=== PATIENT | male | born 1960 | race Caucasian/White ===

== ENCOUNTER 2021-09-19 16:38 | Inpatient (IN) | payer OTHER, BC ==
[~2021-09-19] VITALS: Ht 175.3 cm; Wt 100.5 kg
[~2021-09-19 16:38] MED LIST changes: -ATOR10 PO; -CIPR750 PO; -Prinivil10 MG PO; -TRAZ100 PO; -VISBIOME 112.51 EACH PO
[2021-09-19] MEDS ORDERED: TRAZ100 PO (17:06)
[2021-09-19] MEDS ORDERED: ATOR10 PO (17:07)
[2021-09-19] MEDS ORDERED: Prinivil10 MG PO (17:07)
[2021-09-19 18:34] LABS: Body Fluid Crystals NEG (NEGATIVE)
[2021-09-19 18:43] LABS: BODY FLUID RBC 0.598 M/mm3 (0-0); RBC Count, Synovial Fluid 598000 /mm3 (0-0)
[2021-09-19 19:05] LABS: WBC Count, Synovial Fluid 48620 /mm3 (0-180)
[2021-09-19 19:09] LABS: Color, Synovial Fluid Red (None-P Yel)
[2021-09-19 19:10] LABS: Appearance, Synovial Fluid Turbid (Clear)
[2021-09-19 19:26] LABS: Glucose, Body Fluid 49 mg/dL; Protein, Body Fluid 4.3 g/dL
[2021-09-19 19:49] LABS: Monocytes/Macrophages, Synovia 12 % (0-65); Neutrophils, Synovial Fluid 88 % (0-24)
[2021-09-19 20:20] LABS: Calcium, Ionized (POC) 1.17 mmol/L (1.10-1.46); Chloride (POC) 101 mmol/L (98-108); Creatinine (POC) 0.8 mg/dL (0.8-1.3); Glucose (ISTAT POC) 91 mg/dL (70-99); Hemoglobin (POC) 14.6 g/dL (13.5-17.5); Potassium (POC) 4.1 mmol/L (3.5-5.5); Sodium (POC) 136 mmol/L (135-148); Total CO2 (POC) 25 mmol/L (21-32)
[2021-09-20 01:41] LABS: Influenza A, PCR NEGATIVE (NEGATIVE); Influenza B, PCR NEGATIVE (NEGATIVE); Resp Syncytial Virus, PCR NEGATIVE (NEGATIVE); SARS-Cov-2 (COVID-19) PCR, MMC NEGATIVE (NEGATIVE)
--- NOTE | 2021-09-20 05:49 | NUR ---
SHIFT SUMMARY PT NEW ED ADMIT THIS EVENING. LEFT KNEE SWOLLEN, RED, AND WARM. REDNESS MARKED WITH PEN. PT NPO SINCE MIDNIGHT FOR SURGERY ON KNEE. PT REPORTING PAIN TO LEFT KNEE. ELEVATED ON PILLOW AND ICE PACKS APPLIED. PT REPORTED FENTANYL NOT EFFECTIVE AFTER SECOND DOSE. THIRD DOSE GIVEN AND THEN NEW ORDER OBTAINED FOR DILAUDID. THIS RN WENT TO ADMINISTER DILAUDID AND PT WAS ASLEEP. WILL CONTINUE TO MONITOR. VITAL SIGNS STABLE. TELEMETRY SINUS SHARYN AT 57. PT HAS A HX OF BRADYCARDIA. ASYMPTOMATIC.
[2021-09-20 07:26] LABS: BASOPHILS ABSOLUTE AUTO 0.03 K/mm3 (0.00-0.23); BASOPHILS PERCENT AUTO 0 % (0-2); EOSINOPHILS PERCENT AUTO 1 % (0-6); Hematocrit 42.1 % (37.0-53.0); Hemoglobin 13.7 g/dL (13.5-17.5); IMMATURE GRAN ABSOLUTE AUTO 0.02 K/mm3 (0.00-0.10); IMMATURE GRAN PERCENT AUTO 0 % (0-1); LYMPHOCYTES ABSOLUTE AUTO 1.69 K/mm3 (0.84-5.20); LYMPHOCYTES PERCENT AUTO 20 % (21-46); MONOCYTES ABSOLUTE AUTO 0.91 K/mm3 (0.16-1.47); MONOCYTES PERCENT AUTO 11 % (4-13); Mean Corpuscular HGB Conc 32.5 g/dL (31.5-36.5); Mean Corpuscular Volume 89 fL (80-100); Mean Platelet Volume 9.6 fL (9.1-12.4); NEUTROPHILS ABSOLUTE AUTO 5.74 K/mm3 (1.96-9.15); NEUTROPHILS PERCENT AUTO 68 % (41-73); Platelet Count 211 K/mm3 (150-400); RDW Coefficient Variation 12.6 % (11.7-14.2); RDW Standard Deviation 41.2 fL (35.1-46.3); Red Blood Cell Count 4.72 M/mm3 (4.30-5.90); White Blood Cell Count 8.49 K/mm3 (4.00-11.30)
[2021-09-20 07:51] LABS: Alanine Aminotransfer (ALT/SGP 36 U/L (12-78); Albumin, Blood 2.9 g/dL (3.4-5.0); Albumin/Globulin Ratio 0.8 (0.8-1.8); Alk Phos 65 U/L (50-136); Anion Gap 5 mmol/L (6-16); Aspartate Aminotrans (AST/SGOT 17 U/L (12-37); Bilirubin, Total 0.6 mg/dL (0.1-1.0); Blood Urea Nitrogen 11 mg/dL (8-24); Bun/Creatinine Ratio 13.4 (12.0-20.0); CO2, Blood 29 mmol/L (21-32); Calcium, Blood 8.4 mg/dL (8.5-10.1); Chloride, Blood 105 mmol/L (98-108); Creatinine, Blood 0.82 mg/dL (0.60-1.20); Globulin, Blood 3.5 g/dL (2.2-4.0); Glomerular Filtration Rate >60 (60-); Glucose, Blood 110 mg/dL (70-99); Potassium, Blood 3.9 mmol/L (3.5-5.5); Sodium, Blood 139 mmol/L (136-145); Total Protein, Blood 6.4 g/dL (6.4-8.2)
--- NOTE | 2021-09-20 09:46 | NUR ---
History, Chart, Medications and Allergies reviewed before start of procedure. Lungs clear T/O to Auscultation. Patient confirms NPO status and agrees with scheduled surgery. Pre-Op teaching done. Pt verbalizes understanding.
--- NOTE | 2021-09-20 10:56 | NUR ---
09/20/21 1056 Amadeo Tracey PT ON SCHEDULED ABX
--- NOTE | 2021-09-20 11:56 | NUR ---
PT TO PACU FOR RECOVERY. SNORING, CHIN LIFT FOR IMPROVED AIRWAY CLEARANCE. PLACED ON 4L O2 VIA NC. LEFT LEG IMMOBILIZER WITH MADAY DRAIN PLACED WITH SMALL AMOUNT RED DRAINAGE. ICE THERAPY PLACED FOR COMFORT. PT DENIES PAIN/NAUSEA.
--- NOTE | 2021-09-20 12:14 | NUR ---
20CC RED DRAINAGE FROM MADAY DRAIN.
--- NOTE | 2021-09-20 13:27 | NUR ---
RN NOTE PT RETURNED TO MEDICAL UNIT FROM RECOVERY ROOM AT 1300HRS. PT AWAKE ON ARRIVAL. SATS IN THE HIGH 90S ON ROOM AIR. NO SOB. LEFT LEG HAS RAJENDRA WRAP BANDAGE UNDER KNEE IMMOBILISER, ELEVATED ON PILLOWS WITH ICE PACKS IN PLACE. LEFT FOOT WARM, GOOD SENSATION, PT AND DP PULSE PALPABLE, PT ABLE TO WIGGLE TOES. HE STATES 2/10 MILD DISCOMFORT ONLY AT THIS TIME. PRESENT ON TRANSFER. SCD ON R LEG. TELEMETRY REAPPLIED AND TELETECH NOTIFIED. MADAY DRAIN R KNEE WITH BLOODY DRAINAGE TO BULB SUCTION. IVF FROM PRE OP RESUMED AND MARÍA HUNG AFTTER VERIFYING WITH RECEVERY ROOM ANGELES ARVIZU THAT IT WAS NOT GIVEN INTRA-OP. BED LOW, SIDE RAIL UP X 3, CALL LIGHT IN REACH.
--- NOTE | 2021-09-20 17:28 | NUR ---
SHIFT SUMMARY MR CORREA IS DOING WELL POST-OP. HE IS LIVELY, TALKING WITH FAMILY, NO SOB, DENIES PAIN. LEFT LEG HAS RAJENDRA WRAP DRESSING INTACT AND DRY, KNEE IMMOBILISER, ELEVATED ON PILLOW, ICE PACKS TO LEFT LEG. SCD R LEG. USING IS WITH GOOD TECHNIQUE UP TO 3200ML. S/B SURGEON - PT KNOWS TO REST IN BED OVERNIGHT AND NOT STAND. HE HAS VOIDED, HAS TOLERATED ORAL FOOD/FLUIDS, NO NAUSEA. BED LOW, CALL LIGHT IN REACH.
[2021-09-21 02:03] LABS: BASOPHILS ABSOLUTE AUTO 0.01 K/mm3 (0.00-0.23); BASOPHILS PERCENT AUTO 0 % (0-2); EOSINOPHILS PERCENT AUTO 0 % (0-6); Hematocrit 38.7 % (37.0-53.0); Hemoglobin 12.9 g/dL (13.5-17.5); IMMATURE GRAN ABSOLUTE AUTO 0.05 K/mm3 (0.00-0.10); IMMATURE GRAN PERCENT AUTO 0 % (0-1); LYMPHOCYTES ABSOLUTE AUTO 1.16 K/mm3 (0.84-5.20); LYMPHOCYTES PERCENT AUTO 10 % (21-46); MONOCYTES ABSOLUTE AUTO 0.89 K/mm3 (0.16-1.47); MONOCYTES PERCENT AUTO 7 % (4-13); Mean Corpuscular HGB 29.4 pg (26.0-34.0); Mean Corpuscular HGB Conc 33.3 g/dL (31.5-36.5); Mean Corpuscular Volume 88 fL (80-100); Mean Platelet Volume 9.8 fL (9.1-12.4); NEUTROPHILS ABSOLUTE AUTO 10.16 K/mm3 (1.96-9.15); NEUTROPHILS PERCENT AUTO 83 % (41-73); Platelet Count 205 K/mm3 (150-400); RDW Coefficient Variation 12.5 % (11.7-14.2); RDW Standard Deviation 40.3 fL (35.1-46.3); Red Blood Cell Count 4.39 M/mm3 (4.30-5.90); White Blood Cell Count 12.27 K/mm3 (4.00-11.30)
[2021-09-21 02:21] LABS: Anion Gap 5 mmol/L (6-16); Blood Urea Nitrogen 13 mg/dL (8-24); Bun/Creatinine Ratio 14.8 (12.0-20.0); CO2, Blood 26 mmol/L (21-32); Calcium, Blood 8.2 mg/dL (8.5-10.1); Chloride, Blood 110 mmol/L (98-108); Creatinine, Blood 0.88 mg/dL (0.60-1.20); Glomerular Filtration Rate >60 (60-); Glucose, Blood 151 mg/dL (70-99); Potassium, Blood 4.2 mmol/L (3.5-5.5); Sodium, Blood 141 mmol/L (136-145); Vancomycin, Trough 15.5 ug/mL (5.0-10.0)
--- NOTE | 2021-09-21 03:44 | NUR ---
SHIFT SUMMARY PT OVERALL DOING WELL BUT HAD A DIFFICULT TIME SLEEPING THIS EVENING. MEDICATED X 1 W/ 1 TAB NORCO. PT REMAINED IN BED THROUGHOUT THE NIGHT. DENIED ANY PAIN IN LLE. SURGICAL SITE DRESSING REMAINED C/D/I. MADAY DRAIN PRESENT WITH SEROSANGUINOUS DRAINAGE. IMMOBOLIZER REMAINED ON LLE. PULSES AND SENSATION GOOD. PT REMAINED BRADYCARDIC ON TELEMETRY, MOSTLY IN THE 50'S BUT DOES DROP INTO THE 40'S AT TIME. PT REPORTS THIS IS NORMAL FOR HIM. VITAL SIGNS STABLE. WILL CONTINUE TO MONITOR.
[2021-09-22 02:09] LABS: BASOPHILS ABSOLUTE AUTO 0.07 K/mm3 (0.00-0.23); BASOPHILS PERCENT AUTO 1 % (0-2); EOSINOPHILS ABSOLUTE AUTO 0.09 K/mm3 (0.00-0.68); EOSINOPHILS PERCENT AUTO 1 % (0-6); Hematocrit 39.2 % (37.0-53.0); Hemoglobin 13.1 g/dL (13.5-17.5); IMMATURE GRAN ABSOLUTE AUTO 0.04 K/mm3 (0.00-0.10); IMMATURE GRAN PERCENT AUTO 0 % (0-1); LYMPHOCYTES ABSOLUTE AUTO 2.63 K/mm3 (0.84-5.20); LYMPHOCYTES PERCENT AUTO 27 % (21-46); MONOCYTES ABSOLUTE AUTO 0.73 K/mm3 (0.16-1.47); MONOCYTES PERCENT AUTO 8 % (4-13); Mean Corpuscular HGB 29.6 pg (26.0-34.0); Mean Corpuscular HGB Conc 33.4 g/dL (31.5-36.5); Mean Corpuscular Volume 89 fL (80-100); Mean Platelet Volume 9.9 fL (9.1-12.4); NEUTROPHILS ABSOLUTE AUTO 6.13 K/mm3 (1.96-9.15); NEUTROPHILS PERCENT AUTO 63 % (41-73); Platelet Count 218 K/mm3 (150-400); RDW Coefficient Variation 12.5 % (11.7-14.2); RDW Standard Deviation 40.7 fL (35.1-46.3); Red Blood Cell Count 4.43 M/mm3 (4.30-5.90); White Blood Cell Count 9.69 K/mm3 (4.00-11.30)
[2021-09-22 02:26] LABS: Vancomycin, Trough 17.3 ug/mL (5.0-10.0)
--- NOTE | 2021-09-22 06:27 | NUR ---
SHIFT SUMMARY A/OX4, TTWB TO L. LEG. KNEE IMMOBOLIZER IN PLACE. MADAY DRAIN IN PLACE WITH BRIGHT RED OUTPUT. DENIES PAIN OR SOB. VSS, NO ACUTE CHANGES AT THIS TIME. BED IN LOWEST POSITION WITH CALL LIGHT IN REACH. WILL CONTINUE TO MONITOR AND REPORT TO ONCOMING RN.
--- NOTE | 2021-09-22 17:55 | NUR ---
AOX4, L KNEE IMMOBOLIZER IN PLACE. MADAY DRAIN COMPRESSED BRIGHT RED OUTPUT. PT CURRENTLY DENIES PAIN. NO ACUTE CHANGES TODAY. CALL LIGHT IN REACH.
--- NOTE | 2021-09-23 04:37 | NUR ---
SHIFT SUMMARY A/OX4, SBA. IMMOBOLIZER TO L. KNEE. MADAY DRAIN WITH SANGINOUS OUTPUT. C/O NECK PAIN, MEDICATED PER EMAR. VSS, NO ACUTE CHANGES AT THIS TIME. BED IN LOWEST POSITION WITH CALL LIGHT IN REACH. WILL CONTINUE TO MONITOR AND REPORT TO ONCOMING RN.
[2021-09-23 05:50] LABS: BASOPHILS ABSOLUTE AUTO 0.04 K/mm3 (0.00-0.23); BASOPHILS PERCENT AUTO 0 % (0-2); EOSINOPHILS ABSOLUTE AUTO 0.16 K/mm3 (0.00-0.68); EOSINOPHILS PERCENT AUTO 2 % (0-6); Hematocrit 39.7 % (37.0-53.0); Hemoglobin 13.2 g/dL (13.5-17.5); IMMATURE GRAN ABSOLUTE AUTO 0.06 K/mm3 (0.00-0.10); IMMATURE GRAN PERCENT AUTO 1 % (0-1); LYMPHOCYTES ABSOLUTE AUTO 3.22 K/mm3 (0.84-5.20); LYMPHOCYTES PERCENT AUTO 35 % (21-46); MONOCYTES ABSOLUTE AUTO 0.86 K/mm3 (0.16-1.47); MONOCYTES PERCENT AUTO 9 % (4-13); Mean Corpuscular HGB 29.6 pg (26.0-34.0); Mean Corpuscular HGB Conc 33.2 g/dL (31.5-36.5); Mean Corpuscular Volume 89 fL (80-100); Mean Platelet Volume 9.5 fL (9.1-12.4); NEUTROPHILS ABSOLUTE AUTO 4.92 K/mm3 (1.96-9.15); NEUTROPHILS PERCENT AUTO 53 % (41-73); Platelet Count 246 K/mm3 (150-400); RDW Coefficient Variation 12.4 % (11.7-14.2); RDW Standard Deviation 40.8 fL (35.1-46.3); Red Blood Cell Count 4.46 M/mm3 (4.30-5.90); White Blood Cell Count 9.26 K/mm3 (4.00-11.30)
[2021-09-23 06:13] LABS: Anion Gap 4 mmol/L (6-16); Blood Urea Nitrogen 16 mg/dL (8-24); Bun/Creatinine Ratio 18.4 (12.0-20.0); CO2, Blood 28 mmol/L (21-32); Calcium, Blood 8.9 mg/dL (8.5-10.1); Chloride, Blood 107 mmol/L (98-108); Creatinine, Blood 0.87 mg/dL (0.60-1.20); Glomerular Filtration Rate >60 (60-); Glucose, Blood 93 mg/dL (70-99); Potassium, Blood 4.2 mmol/L (3.5-5.5); Sodium, Blood 139 mmol/L (136-145)
[2021-09-23] MEDS ORDERED: CIPR750 PO (18:49)
[2021-09-23] MEDS ORDERED: VISBIOME 112.51 EACH PO (18:49)
== END 2021-09-23 19:22 | disposition home or self-care (01) | DRG 486 ==
LOC: ER 16:38 → MEDS 16:39
PROVIDERS: Emergency Medicine; Orthopaedic Surgery; Student in an Organized Health Care Education/Training Program; ADMIT Internal Medicine
PROC: 0SBD4ZZ Excision of Left Knee Joint, Percutaneous Endoscopic Approach (ICD-10-PCS; principal; 2021-09-19)
PROC: 0S9D3ZX Drainage of Left Knee Joint, Percutaneous Approach, Diagnostic (ICD-10-PCS; 2021-09-20 09:30)
DX: M00.862 Arthritis due to other bacteria, left knee (principal); L03.116 Cellulitis of left lower limb; Z20.822 Contact with and (suspected) exposure to COVID-19; B95.2 Enterococcus as the cause of diseases classified elsewhere; I10 Essential (primary) hypertension; G47.00 Insomnia, unspecified; E78.5 Hyperlipidemia, unspecified; Z79.899 Other long term (current) drug therapy; Z98.890 Other specified postprocedural states
CPT/HCPCS: 0241U; 20610; 36415; 73701; 80047; 80048; 80053; 80202; 82945; 84157; 85014; 85025; 87070; 87075; 87205; 89051; 89060; 96365; 96366; 96374-59; 96375; 96375-59; 96376; 99285-25; A9270; G0378; J0290; J0696; J1100; J1170; J1650; J1885; J2250; J2405; J2704; J3010; J3370; J7030; J7040; J7060; J7120; Q9967

== ENCOUNTER → 2021-09-19 | Outpatient (CLI) | payer BC ==
[~2021-09-19] MED LIST: ATOR10 PO; CEPH500 PO; CIPR750 PO; CITA20 PO; LISI20 PO; NAPR500 PO; Prinivil10 MG PO; TRAZ100 PO; TRAZ50 PO; VISBIOME 112.51 EACH PO
== END | disposition home or self-care (01) ==
LOC: LAB 15:55 → LAB SHORT 15:55
DX: S81.002A Unspecified open wound, left knee, initial encounter (principal)
CPT/HCPCS: 87070; 87075; 87077; 87186; 87205

== ENCOUNTER → 2021-10-05 | Outpatient (CLI) | payer OTHER, BC ==
[~2021-10-05] MED LIST changes: +ATOR10 PO; +CIPR750 PO; +Prinivil10 MG PO; +TRAZ100 PO; +VISBIOME 112.51 EACH PO
[2021-10-05 10:58] LABS: BODY FLUID RBC 0.195 M/mm3 (0-0); RBC Count, Synovial Fluid 195000 /mm3 (0-0); WBC Count, Synovial Fluid 2457 /mm3 (0-180)
[2021-10-05 11:40] LABS: Color, Synovial Fluid Red (None-P Yel); Lymphs, Synovial Fluid 5 % (0-15); Monocytes/Macrophages, Synovia 24 % (0-65); Neutrophils, Synovial Fluid 71 % (0-24)
[2021-10-05 11:41] LABS: Appearance, Synovial Fluid Hazy (Clear)
[2021-10-05 13:52] LABS: Body Fluid Crystals POS (NEGATIVE)
== END | disposition home or self-care (01) ==
LOC: LAB SHORT 10:18
PROVIDERS: Orthopaedic Surgery
DX: Z51.81 Encounter for therapeutic drug level monitoring (principal); Z98.890 Other specified postprocedural states
CPT/HCPCS: 89051; 89060